=== PATIENT | female | born 1985 | race Caucasian/White ===

== ENCOUNTER 2020-07-14 17:16 | Emergency (ER) | payer OTHER, SELFPAY ==
[2020-07-14] VITALS (8 sets, daily range): BP systolic 103–138; BP diastolic 64–79; PULSE 90–118; RESP 14–25; TEMP 37.2; O2SAT 96–100; BMI 23.0
--- NOTE | 2020-07-14 17:54 | XR_ITS ---
WS: [id number] PORTABLE CHEST HISTORY: dyspnea/cough COMPARISON: None available. Lungs are clear and well expanded. No pleural effusion or pneumothorax. Cardiac size: Normal. Mediastinum/Aorta: Normal mediastinum. No osseous abnormality seen. XR/XR chest 1V portable [id number] IMPRESSION: Unremarkable portable chest.
[2020-07-14 18:17] LABS: Basophils % 0.1 %; Eosinophils % 0.4 %; Hematocrit 41.4 % (37.0-47.0); Hemoglobin 13.8 g/dL (11.5-15.3); Lymphocytes # 1.8 10^3/uL (0.8-4.8); Lymphocytes % 21.4 %; Mean Corpuscular HGB Conc 33.3 g/dL (30.0-36.0); Mean Corpuscular Hemoglobin 30.5 pg (28.0-34.0); Mean Corpuscular Volume 91.4 fL (81-99); Mean Platelet Volume 10.5 fL (7.4-10.4); Monocytes # 0.8 10^3/uL (0.2-0.9); Neutrophils # 5.81 10^3/uL (1.8-7.7); Neutrophils % 68.9 %; Nucleated Red Blood Cells % 0 %; Platelet Count 260 10^3/cmm (130-400); Red Blood Count 4.53 10^6/uL (4.1-5.3); Red Cell Distribution Width 12.6 % (12.1-15.1); White Blood Count 8.4 10^3/uL (4.0-10.0)
[2020-07-14] MEDS: sodium chloride 0.9% 1,000 ML 999 ML IV (18:28)
--- NOTE | 2020-07-14 18:28 | CTR_ITS ---
PROCEDURE INFORMATION: Exam: CT Head Without Contrast Exam date and time: 07/14/2020 6:47 PM Age: 34 years old Clinical indication: Dizziness TECHNIQUE: Imaging protocol: Computed tomography of the head without contrast. Radiation optimization: All CT scans at this facility use at least one of these dose optimization techniques: automated exposure control; mA and/or kV adjustment per patient size (includes targeted exams where dose is matched to clinical indication); or iterative reconstruction. COMPARISON: No relevant prior studies available. RADIATION DOSE METRICS: Total DLP (mGy-cm): 653.83 FINDINGS: Brain: Normal. No hemorrhage. Unremarkable white matter. No mass effect. Cerebral ventricles: No ventriculomegaly. Bones/joints: Unremarkable. No acute fracture. Paranasal sinuses: Visualized sinuses are unremarkable. No fluid levels. Mastoid air cells: Visualized mastoid air cells are well aerated. Soft tissues: Unremarkable. CT/CT head wo con* [id number] IMPRESSION: No acute intracranial abnormality. Radiation Dose CTDIVOL = (mGy): DLP = 653.83 (mGy-cm)
[2020-07-14] MEDS: aspirin 325 mg Tablet PO (18:38)
[2020-07-14 18:47] LABS: Alanine Aminotransferase 24 U/L (0-33); Albumin Level 5.2 g/dL (3.5-5.2); Alkaline Phosphatase 70 IU/L (35-105); Anion Gap 15.2 (5-19); Aspartate Amino Transferase 26 U/L (0-32); Blood Urea Nitrogen 8 mg/dL (6-20); Calcium 10.2 mg/dL (8.5-10.5); Carbon Dioxide 26 mmol/L (22-29); Chloride 100 mmol/L (98-107); Glomerular Filtration Rate 139.6 mL/min (90-130); Glucose 92 mg/dL (65-115); Osmolality Calculated 284 mOsm/kg (285-295); Potassium 3.2 mmol/L (3.5-5.1); Sodium 138 mmol/L (136-145); Total Bilirubin 0.6 mg/dL (0.15-1.2); Total Protein 8.2 g/dL (6.6-8.7)
[2020-07-14 18:50] LABS: Troponin(5th) Baseline 6 ng/L (0-10)
[2020-07-14 18:54] LABS: Add Urine Microscopic? NO
[2020-07-14 19:11] LABS: Bilirubin Urine Neg (Negative); Blood Urine Neg (Negative); Glucose Urine UA Norm (Normal); Ketones Urine 1+ (Negative); Leukocyte Esterase Urine Negative (Negative); Nitrate Urine Negative (Negative); Protein Urine Neg (Negative); Specific Gravity, Urine 1.005 (1.005-1.030); Urine Appearance Clear (CLEAR); Urine Color Yellow (Yellow); Urobilinogen Urine Norm (Negative); pH Urine 6 (5-7)
[2020-07-14 19:12] LABS: D Dimer 0.45 ug/mIFEU (0-0.59)
--- NOTE | 2020-07-14 19:15 | ECG_ITS ---
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
[2020-07-14 19:20] LABS: Amphetamines Screen Urine Negative (Negative); Barbiturates Screen Urine Negative (Negative); Benzodiazepines Screen Urine Positive (Negative); Cocaine Screen Urine Negative (Negative); Opiate Screen Urine Negative (Negative); PCP Screen Urine Negative (Negative); THC Screen Urine Negative (Negative)
[2020-07-14 19:25] LABS: SARS Covid-2 Antigen Negative (Negative)
[2020-07-14 19:36] LABS: Free T4 Free Thyroxine 1.27 ng/dL (0.82-1.77); Magnesium 2.2 mg/dL (1.7-2.3); Thyroid Stimulating Hormone 2.26 uIU/mL (0.27-4.20)
--- NOTE | 2020-07-14 19:54 | ED_ITS ---
HPI - Chest Pain General: Chief Complaint: Chest Pain Stated Complaint: chest pain Time Seen by Provider: 07/14/20 17:54 Source: patient Mode of arrival: ambulatory Limitations: no limitations History of Present Illness: HPI narrative: Madison is a 34-year-old female who comes in complaining of chest pain. She describes the pain as a ache type pain that radiates down her left arm. Occasionally feels dizzy with this but denies any syncope or near syncope type symptoms. She is nauseated but does not vomit. She denies any shortness of breath, diaphoresis, fevers or chills, but she states she does have a runny nose and congestion. She also complains of some mild epigastric pain intermittently but none presently. Patient denies any similar symptoms to this in the past. She is unaware of anything that makes her pain better or worse. She states this pain has been constant for the past 2 days and is wax and wane in intensity but is never gone away completely. Associated symptoms: Reports abdominal pain, dyspnea, nausea and palpitations; Deny diaphoresis, fever(s), syncope or vomiting Review of Systems Const: Denies: fever(s), chills, body aches, fatigue, malaise or diaphoresis Eyes: Denies: change in vision, blurry vision, photophobia, eye discomfort, eye discharge, eye redness or yellow eyes ENMT: Denies: throat pain, odynophagia, hoarseness, swelling of lips/tongue, ear or mastoid pain, ear discharge, change in hearing or nasal discharge Card: Reports: chest pain and palpitations; Denies: irregular heart rhythm, edema, lightheadedness, syncope, pre-syncope, dyspnea on exertion or orthopnea Resp: Reports: dyspnea; Denies: productive cough, non-productive cough, wheezing, hemoptysis or chest congestion GI: Reports: abdominal pain and nausea; Denies: vomiting, hematemesis, coffee ground emesis, heartburn, diarrhea, constipation, GI cramping, hematochezia or melena : Denies: flank pain, dysuria, urinary frequency, urinary urgency or hematuria Musc: Denies: neck pain, back pain, extremity pain, extremity swelling, joint pain, joint swelling, joint redness, joint warmth or joint stiffness Skin/Breast: Denies: rash, pruritus, erythema, skin pain or skin tenderness Neuro: Reports: headache(s) and dizziness; Denies: numbness in extremities, weakness in extremities, sensory changes, lack of coordination, difficulty walking, vertigo, confusion, Slurred speech present or seizure-like activity Axel/Lymph: Denies: easy bruising, easy bleeding, petechiae, purpura or enlarged lymph nodes All/Imm: Denies: urticaria, throat swelling, tongue swelling, facial swelling or acute wheezing PFSH ED PFSH: Medical History (Updated 07/14/20 @ 22:26 by Phyllis Clifford) Tension headache Surgical History (Updated 07/14/20 @ 21:37 by Phyllis Clifford) H/O hernia repair S/P adenoidectomy S/P tonsillectomy Physical Exam Const: COMMON NORMALS: no acute distress, patient oriented x3, no limitations and alert GENERAL APPEARANCE: cooperative HENMT: COMMON NORMALS: normocephalic, atraumatic, external ears normal, EAC's normal and Normal external nose present HEAD & SCALP: normal to inspection, normocephalic and atraumatic FACE & SINUS: normal facial exam and face symmetric NOSE: Normal external nose present and Normal nares present EXTERNAL EAR: Yes external ears normal EXTERNAL AUDITORY CANAL: EAC's normal MOUTH: Normal oral and palatal mucosa present, lip normal and tongue normal Eye: COMMON NORMALS: Equal, round and reactive pupils present and conjunctivae normal GENERAL EYE: appearance normal, both eyes and all related structures ALIGNMENT: Yes alignment normal PERIORBITAL: periorbital findings normal EYELID: eyelids normal CONJUNCTIVA: Yes conjunctivae normal SCLERA: sclerae normal PUPIL: Yes Equal, round and reactive pupils present Neck/C-Spine: COMMON NORMALS: full ROM, no lymphadenopathy, supple, no meningeal signs and no JVD GENERAL: Yes normal visual inspection and Yes trachea midline Chest: COMMONS NORMALS: normal inspection of the chest and normal palpation of entire chest wall Resp: COMMON NORMALS: normal respiratory effort, No retractions, No use of accessory muscles and clear to auscultation bilaterally EFFORT & INSPECTION: Yes able to speak in complete sentences and Yes symmetric chest movement AUSCULTATION: clear to auscultation bilaterally, no crackles, no rales, no rhonchi and no wheezes Cardio: COMMON NORMALS: no JVD, regular rate, regular rhythm, S1 normal heart sound present and S2 normal heart sound present RATE: regular rate RHYTHM: regular rhythm HEART SOUNDS: S1 normal heart sound present, S2 normal heart sound present, no click, no gallops, no murmurs and no rubs GI: COMMON NORMALS: Soft to palpation and No hepatosplenomegaly present PALPATION: Yes Soft to palpation, No Tenderness to palpation present (GI), No Guarding due to palpation present (GI), No Rigid due to palpation, Yes No hepatosplenomegaly present, No Hernia present, No Palpable mass present and No Pulsatile mass present : COMMON NORMALS: Yes no CVA tenderness BLADDER/KIDNEY EXAM: Yes no CVA tenderness EXTERNAL FEMALE EXAM: No Hernia present Back/Pelvis: COMMON NORMALS: no CVA tenderness, thoracic and lumbar spine normal to inspection, no thoracic nor lumbar tenderness and thoraco-lumbar ROM normal Extremity: COMMON NORMALS: normal to inspection, full ROM, capillary refill normal, no joint enlargement, no clubbing, cyanosis or edema and no calf tenderness Neuro: COMMON NORMALS: patient oriented x3, CN's II-XII intact bilaterally, moves all extremities, no focal motor deficits and no sensory deficits noted SENSORIUM/ORIENTATION: Yes alert MENINGEAL SIGNS: Yes no meningeal signs SPEECH: speech normal Psych: COMMON NORMALS: mental status grossly normal, Normal thought process present, cooperative, normal affect, speech normal and activity/motor behavior normal SPEECH: Yes normal speech THOUGHT PROCESS: Normal thought process present Skin: COMMON NORMALS: no rashes or lesions noted, turgor normal, no jaundice, no petechiae and no mottling GENERAL SKIN EXAM: no rashes or lesions noted and turgor normal Course Vital Signs: Vital signs: Vital Signs Temperature 98.9 F 07/14/20 17:27 Pulse Rate 93 07/14/20 22:00 Respiratory Rate 21 H 07/14/20 22:00 Blood Pressure 103/70 07/14/20 22:00 Pulse Oximetry 97 07/14/20 22:00 MDM - Chest Pain MDM Narrative: Medical decision making narrative: Rosamaria is a very nice 34-year-old female who comes in complaining of constant chest pain for the past 2 days. Her symptoms have been constant but does wax and wanes in intensity. She has a heart score of 1, and the EDACs score of 7 which is low risk and has a T-MACS rated is very low. Nonetheless because the patient seems very anxious and concerned about her symptoms I have offered to keep her here for a 6-hour troponin and EKG as well as admitting her to the hospital for observation for stress testing. After asking multiple questions and talking with her she has decided she would rather go home. I think with 2 days of constant pain with no change in her EKGs or bump in her troponin this is unlikely to be acute coronary syndrome. I have utilized the hospital chest pain pathway and she is deemed safe for discharge. Patient is not on control, she has no leg pain or swelling and there is no pleuritic sounding component. The patient is low risk per the Wells criteria for DVT/PE and her D-dimer is negative. Patient understands she can return here if her symptoms change or worsen but at this time she is feeling better and would like to be discharged. I will have case management set her up for an outpatient stress test. Lab Data: Attestation: I reviewed the patient's lab results. Labs: Lab Results 07/14/20 07/14/20 07/14/20 Range/Units 18:08 18:08 18:08 WBC 8.4 (4.0-10.0) 10^3/ uL RBC 4.53 (4.1-5.3) 10^6/u L Hgb 13.8 (11.5-15.3) g/dL Hct 41.4 (37.0-47.0) % MCV 91.4 (81-99) fL MCH 30.5 (28.0-34.0) pg MCHC 33.3 (30.0-36.0) g/dL RDW 12.6 (12.1-15.1) % Plt Count 260 (130-400) 10^3/c mm MPV 10.5 H (7.4-10.4) fL Neut % (Auto) 68.9 % Lymph % (Auto) 21.4 % Swain % (Auto) 9.0 % Eos % (Auto) 0.4 % Baso % (Auto) 0.1 % Neut # (Auto) 5.81 (1.8-7.7) 10^3/u L Lymph # (Auto) 1.8 (0.8-4.8) 10^3/u L Swain # (Auto) 0.8 (0.2-0.9) 10^3/u L Eos # (Auto) 0.0 (0.0-0.8) 10^3/u L Baso # (Auto) 0.0 (0.0-0.1) 10^3/u L Nucleated RBC % (a uto) 0 % Nucleated RBCs # 0.0 /100WBC D-Dimer (0-0.59) ug/mIFE U Sodium 138 (136-145) mmol/L Potassium 3.2 L (3.5-5.1) mmol/L Chloride 100 (98-107) mmol/L Carbon Dioxide 26 (22-29) mmol/L Anion Gap 15.2 (5-19) BUN 8 (6-20) mg/dL Creatinine 0.5 (0.5-0.9) mg/dL GFR Calculation 139.6 H (90-130) mL/min Glucose 92 (65-115) mg/dL Calculated Osmolal ity 284 L (285-295) mOsm/k g Lactic Acid (0.5-2.2) mmol/L Calcium 10.2 (8.5-10.5) mg/dL Magnesium (1.7-2.3) mg/dL Total Bilirubin 0.6 (0.15-1.2) mg/dL AST 26 (0-32) U/L ALT 24 (0-33) U/L Alkaline Phosphata se 70 (35-105) IU/L Troponin T Baselin e 6 (0-10) ng/L Troponin T 120 Min [place] (0-10) ng/L Delta Troponin T (0-10) ABS# Total Protein 8.2 (6.6-8.7) g/dL Albumin 5.2 (3.5-5.2) g/dL Globulin 3.0 (1.3-4.6) g/dL TSH (0.27-4.20) uIU/ mL Free T4 (0.82-1.77) ng/d L Urine Color (Yellow) Urine Appearance (CLEAR) Urine pH (5-7) Ur Specific Gravit y (1.005-1.030) Urine Protein (Negative) Urine Glucose (UA) (Normal) Urine Ketones (Negative) Urine Blood (Negative) Urine Nitrate (Negative) Urine Bilirubin (Negative) Urine Urobilinogen (Negative) mg/dL Ur Leukocyte Nazanin ase (Negative) Urine Opiates Scre en (Negative) ng/mL Ur Barbiturates Sc reen (Negative) ng/mL Ur Phencyclidine S crn (Negative) ng/mL Ur Amphetamines Sc reen (Negative) ng/mL U Benzodiazepines Scrn (Negative) ng/mL Urine Cocaine Scre en (Negative) ng/mL U Marijuana (THC) Screen (Negative) ng/mL SARS-CoV-2 Ag (Rap id) (Negative) 07/14/20 07/14/20 07/14/20 Range/Units 18:08 18:08 18:43 WBC (4.0-10.0) 10^3/ uL RBC (4.1-5.3) 10^6/u L Hgb (11.5-15.3) g/dL Hct (37.0-47.0) % MCV (81-99) fL MCH (28.0-34.0) pg MCHC (30.0-36.0) g/dL RDW (12.1-15.1) % Plt Count (130-400) 10^3/c mm MPV (7.4-10.4) fL Neut % (Auto) % Lymph % (Auto) % Swain % (Auto) % Eos % (Auto) % Baso % (Auto) % Neut # (Auto) (1.8-7.7) 10^3/u L Lymph # (Auto) (0.8-4.8) 10^3/u L Swain # (Auto) (0.2-0.9) 10^3/u L Eos # (Auto) (0.0-0.8) 10^3/u L Baso # (Auto) (0.0-0.1) 10^3/u L Nucleated RBC % (a uto) % Nucleated RBCs # /100WBC D-Dimer 0.45 (0-0.59) ug/mIFE U Sodium (136-145) mmol/L Potassium (3.5-5.1) mmol/L Chloride (98-107) mmol/L Carbon Dioxide (22-29) mmol/L Anion Gap (5-19) BUN (6-20) mg/dL Creatinine (0.5-0.9) mg/dL GFR Calculation (90-130) mL/min Glucose (65-115) mg/dL Calculated Osmolal ity (285-295) mOsm/k g Lactic Acid (0.5-2.2) mmol/L Calcium (8.5-10.5) mg/dL Magnesium 2.2 (1.7-2.3) mg/dL Total Bilirubin (0.15-1.2) mg/dL AST (0-32) U/L ALT (0-33) U/L Alkaline Phosphata se (35-105) IU/L Troponin T Baselin e (0-10) ng/L Troponin T 120 Min [place] (0-10) ng/L Delta Troponin T (0-10) ABS# Total Protein (6.6-8.7) g/dL Albumin (3.5-5.2) g/dL Globulin (1.3-4.6) g/dL TSH 2.26 (0.27-4.20) uIU/ mL Free T4 1.27 (0.82-1.77) ng/d L Urine Color Yellow (Yellow) Urine Appearance Clear (CLEAR) Urine pH 6 (5-7) Ur Specific Gravit y 1.005 (1.005-1.030) Urine Protein Neg (Negative) Urine Glucose (UA) Norm (Normal) Urine Ketones 1+ H (Negative) Urine Blood Neg (Negative) Urine Nitrate Negative (Negative) Urine Bilirubin Neg (Negative) Urine Urobilinogen Norm (Negative) mg/dL Ur Leukocyte Nazanin ase Negative (Negative) Urine Opiates Scre en (Negative) ng/mL Ur Barbiturates Sc reen (Negative) ng/mL Ur Phencyclidine S crn (Negative) ng/mL Ur Amphetamines Sc reen (Negative) ng/mL U Benzodiazepines Scrn (Negative) ng/mL Urine Cocaine Scre en (Negative) ng/mL U Marijuana (THC) Screen (Negative) ng/mL SARS-CoV-2 Ag (Rap id) (Negative) 07/14/20 07/14/20 07/14/20 Range/Units 18:43 18:45 20:53 WBC (4.0-10.0) 10^3/ uL RBC (4.1-5.3) 10^6/u L Hgb (11.5-15.3) g/dL Hct (37.0-47.0) % MCV (81-99) fL MCH (28.0-34.0) pg MCHC (30.0-36.0) g/dL RDW (12.1-15.1) % Plt Count (130-400) 10^3/c mm MPV (7.4-10.4) fL Neut % (Auto) % Lymph % (Auto) % Swain % (Auto) % Eos % (Auto) % Baso % (Auto) % Neut # (Auto) (1.8-7.7) 10^3/u L Lymph # (Auto) (0.8-4.8) 10^3/u L Swain # (Auto) (0.2-0.9) 10^3/u L Eos # (Auto) (0.0-0.8) 10^3/u L Baso # (Auto) (0.0-0.1) 10^3/u L Nucleated RBC % (a uto) % Nucleated RBCs # /100WBC D-Dimer (0-0.59) ug/mIFE U Sodium (136-145) mmol/L Potassium (3.5-5.1) mmol/L Chloride (98-107) mmol/L Carbon Dioxide (22-29) mmol/L Anion Gap (5-19) BUN (6-20) mg/dL Creatinine (0.5-0.9) mg/dL GFR Calculation (90-130) mL/min Glucose (65-115) mg/dL Calculated Osmolal ity (285-295) mOsm/k g Lactic Acid (0.5-2.2) mmol/L Calcium (8.5-10.5) mg/dL Magnesium (1.7-2.3) mg/dL Total Bilirubin (0.15-1.2) mg/dL AST (0-32) U/L ALT (0-33) U/L Alkaline Phosphata se (35-105) IU/L Troponin T Baselin e (0-10) ng/L Troponin T 120 Min [place] 6.00 (0-10) ng/L Delta Troponin T 0 (0-10) ABS# Total Protein (6.6-8.7) g/dL Albumin (3.5-5.2) g/dL Globulin (1.3-4.6) g/dL TSH (0.27-4.20) uIU/ mL Free T4 (0.82-1.77) ng/d L Urine Color (Yellow) Urine Appearance (CLEAR) Urine pH (5-7) Ur Specific Gravit y (1.005-1.030) Urine Protein (Negative) Urine Glucose (UA) (Normal) Urine Ketones (Negative) Urine Blood (Negative) Urine Nitrate (Negative) Urine Bilirubin (Negative) Urine Urobilinogen (Negative) mg/dL Ur Leukocyte Nazanin ase (Negative) Urine Opiates Scre en Negative (Negative) ng/mL Ur Barbiturates Sc reen Negative (Negative) ng/mL Ur Phencyclidine S crn Negative (Negative) ng/mL Ur Amphetamines Sc reen Negative (Negative) ng/mL U Benzodiazepines Scrn Positive H (Negative) ng/mL Urine Cocaine Scre en Negative (Negative) ng/mL U Marijuana (THC) Screen Negative (Negative) ng/mL SARS-CoV-2 Ag (Rap id) Negative (Negative) 07/14/20 Range/Units 20:53 WBC (4.0-10.0) 10^3/ uL RBC (4.1-5.3) 10^6/u L Hgb (11.5-15.3) g/dL Hct (37.0-47.0) % MCV (81-99) fL MCH (28.0-34.0) pg MCHC (30.0-36.0) g/dL RDW (12.1-15.1) % Plt Count (130-400) 10^3/c mm MPV (7.4-10.4) fL Neut % (Auto) % Lymph % (Auto) % Swain % (Auto) % Eos % (Auto) % Baso % (Auto) % Neut # (Auto) (1.8-7.7) 10^3/u L Lymph # (Auto) (0.8-4.8) 10^3/u L Swain # (Auto) (0.2-0.9) 10^3/u L Eos # (Auto) (0.0-0.8) 10^3/u L Baso # (Auto) (0.0-0.1) 10^3/u L Nucleated RBC % (a uto) % Nucleated RBCs # /100WBC D-Dimer (0-0.59) ug/mIFE U Sodium (136-145) mmol/L Potassium (3.5-5.1) mmol/L Chloride (98-107) mmol/L Carbon Dioxide (22-29) mmol/L Anion Gap (5-19) BUN (6-20) mg/dL Creatinine (0.5-0.9) mg/dL GFR Calculation (90-130) mL/min Glucose (65-115) mg/dL Calculated Osmolal ity (285-295) mOsm/k g Lactic Acid 0.8 (0.5-2.2) mmol/L Calcium (8.5-10.5) mg/dL Magnesium (1.7-2.3) mg/dL Total Bilirubin (0.15-1.2) mg/dL AST (0-32) U/L ALT (0-33) U/L Alkaline Phosphata se (35-105) IU/L Troponin T Baselin e (0-10) ng/L Troponin T 120 Min [place] (0-10) ng/L Delta Troponin T (0-10) ABS# Total Protein (6.6-8.7) g/dL Albumin (3.5-5.2) g/dL Globulin (1.3-4.6) g/dL TSH (0.27-4.20) uIU/ mL Free T4 (0.82-1.77) ng/d L Urine Color (Yellow) Urine Appearance (CLEAR) Urine pH (5-7) Ur Specific Gravit y (1.005-1.030) Urine Protein (Negative) Urine Glucose (UA) (Normal) Urine Ketones (Negative) Urine Blood (Negative) Urine Nitrate (Negative) Urine Bilirubin (Negative) Urine Urobilinogen (Negative) mg/dL Ur Leukocyte Nazanin ase (Negative) Urine Opiates Scre en (Negative) ng/mL Ur Barbiturates Sc reen (Negative) ng/mL Ur Phencyclidine S crn (Negative) ng/mL Ur Amphetamines Sc reen (Negative) ng/mL U Benzodiazepines Scrn (Negative) ng/mL Urine Cocaine Scre en (Negative) ng/mL U Marijuana (THC) Screen (Negative) ng/mL SARS-CoV-2 Ag (Rap id) (Negative) Imaging Data^: CXR: Attestation: I personally reviewed and interpreted this imaging study as follows: My impression: No acute cardiopulmonary findings. CT Head: Radiologist's impression: [address] [address] [address] Scan Report Signed Patient: Madison Arreguin Unit #: [id number] : 1985 Age/Sex: 34 / F ADM Date: 07/14/20 Loc: ER Room/Bed: Attending Dr: Ordering Provider/Ordering MD: Phyllis Clifford DO Date of Service: 07/14/20 Procedure(s): CT head wo con* [id number] Accession Number(s): [id number] Report Number: [id number] PROCEDURE INFORMATION: Exam: CT Head Without Contrast Exam date and time: 07/14/2020 6:47 PM Age: 34 years old Clinical indication: Dizziness TECHNIQUE: Imaging protocol: Computed tomography of the head without contrast. Radiation optimization: All CT scans at this facility use at least one of these dose optimization techniques: automated exposure control; mA and/or kV adjustment per patient size (includes targeted exams where dose is matched to clinical indication); or iterative reconstruction. COMPARISON: No relevant prior studies available. RADIATION DOSE METRICS: Total DLP (mGy-cm): 653.83 FINDINGS: Brain: Normal. No hemorrhage. Unremarkable white matter. No mass effect. Cerebral ventricles: No ventriculomegaly. Bones/joints: Unremarkable. No acute fracture. Paranasal sinuses: Visualized sinuses are unremarkable. No fluid levels. Mastoid air cells: Visualized mastoid air cells are well aerated. Soft tissues: Unremarkable. CT/CT head wo con* [id number] IMPRESSION: No acute intracranial abnormality. Radiation Dose CTDIVOL = (mGy): DLP = 653.83 (mGy-cm) Dictated By: Mukesh Benitez Signed By: Mukesh Benitez Signed Date/Time: 07/14/201922 DD/ 21 EKG Data^: EKG 1: Attestation: I personally reviewed and interpreted this EKG as follows: EKG interpretation date: 07/14/20 EKG interpretation time: 17:23 Interpretation: Normal sinus rhythm 104 beats a minute, normal intervals, incomplete right bundle branch block, nonspecific ST and T wave changes. EKG 2: Attestation: I personally reviewed and interpreted this EKG as follows: EKG interpretation date: 07/14/20 EKG interpretation time: 19:19 Interpretation: Normal sinus rhythm at 90 beats a minute, normal axis, normal intervals, incomplete right bundle branch block, no acute ST or T wave changes. Discharge Plan Discharge Patient Disposition: Home Clinical Impression: Chest pain Qualifiers: Chest pain type: unspecified Qualified Code(s): R07.9 - Chest pain, unspecified Condition: Stable Prescriptions: No Action diazepam 2 mg tablet 2 mg PO DAILY RF: 0 vitamin B complex Tablet 1 tab PO DAILY RF: 0 Claritin 10 mg Tablet 10 mg PO DAILY RF: 0 magnesium 200 mg Tablet 200 mg PO DAILY RF: 0 turmeric 1 tab PO DAILY RF: 0 Fish Oil 1 cap PO DAILY RF: 0 Vitamin C 1 tab PO DAILY RF: 0 glucosamine HCl 1 tab PO DAILY RF: 0 Discharge Orders: Discharge Order (Routine); Ordered 07/14/20 Ordered By: Phyllis Clifford Referrals: Chaz Fairchild MD [Primary Care Provider] - Discharge Diet: Low Cholesterol Discharge Activity: Increase activity as tolerated Patient Instructions: Chest Pain (ED) Activity Restrictions/Additional Instructions: Please return to the ER immediately for any of the signs or symptoms listed on your discharge instruction sheets, worsening/changing of your symptoms, you are not getting better as quickly as expected, or for ANY other cause or concerns. I have recommended and offered to perform further testing on your heart to include admission and possibly cardiology consult and stress testing but you have declined. Of course any heart problem can be life-threatening so if your symptoms return, your symptoms change or worsen in any way or you simply change your mind you are more than welcome to return to the ER for further evaluation and care. Our case management department will contact you to set up an outpatient stress test. If you develop any symptoms that are concerning between now and then please return here for recheck. Coding Level of Care Code ED Computer Systems Information Director for [facility] Fwd Exam Comprehensive
[2020-07-14] MEDS: potassium chloride ER 10 mEq Tablet 40 MEQ PO (20:07)
[2020-07-14 21:41] LABS: Lactic Sepsis W/Reflex 0.8 mmol/L (0.5-2.2)
[2020-07-14 21:42] LABS: Troponin 5 2HR Delta 0 ABS# (0-10)
--- NOTE | 2020-07-15 13:01 | DCPLANNER ---
sales activity manager had message to schedule an outpatient stress test for patient. sales activity manager faxed order for outpatient stress test to centralized scheduling. sales activity manager will call for appointment information.
--- NOTE | 2020-07-16 08:01 | DCPLANNER ---
Patient has an out patient stress test scheduled for Friday, July 31, 2020 at 10:00. Centralized scheduling will call patient with appointment information.
--- NOTE | 2020-08-19 13:12 | DCPLANNER ---
Patient had a follow up appointment scheduled for 07.31.20 for a stress test - patient did attend appointment.
== END 2020-07-14 22:48 | disposition home or self-care (01) ==
PROVIDERS: Family Medicine; Emergency Provider Emergency Medicine; PCP Family Medicine
DX: R07.9 Chest pain, unspecified (principal)
CPT/HCPCS: 12345; 36415; 70450; 71045; 80053; 80306; 81003; 83605; 83735; 84439; 84443; 84484; 85025; 85378; 87426; 93005; 96360; 96361; 99284; J7030

== ENCOUNTER 2020-07-31 07:29 | Outpatient (CLI) | payer OTHER, SELFPAY ==
[2020-07-31 07:40] VITALS: BMI 22.1
--- NOTE | 2020-07-31 07:44 | ECG_ITS ---
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 Interpretive Statements NAME OF STUDY: LEXISCAN SESTAMIBI STRESS TEST INDICATION: Chest Pain PROCEDURE: At the baseline, the blood pressure was 109/73 mmHg with a heart rate of 74 bpm. The electrocardiogram showed normal sinus rhythm, normal axis with normal ST and T's. The Lexiscan was infused over a period of 20 seconds. A total of 0.4 milligrams of Lexiscan was infused. The stress phase was continued for a total of 5 minutes. Heart rate at the end of the stress phase was 116 bpm with a blood pressure of 110/69 mmHg. The EKG at the peak infusion revealed sinus tachycardia with nonspecific mild ST depression in inferolateral leads. Sestamibi was injected 20 seconds after the Lexiscan infusion. Blood pressure at the end of the recovery phase was 120/70 mmHg with a heart rate of 107 beats per minute. CONCLUSION: 1. No significant EKG changes with the LexiScan infusion. 2. No LexiScan induced chest pain or cardiac arrhythmia. 3. Normal blood pressure and heart rate response. 4. Sestamibi/sestamibi perfusion scan pending; see separate report. Electronically Signed On 07-31-2020 13:36:59 [employer] by Josefa Daniel M.D. [email or web address]
--- NOTE | 2020-07-31 07:44 | NMCV_ITS ---
NM hannah perf SPECT r/s* [id number] Madison Arreguin Age: 34 Gender: F : 1985 Exam Date: 07/31/2020 08:41 Ordering Phys: Phyllis Clifford DO Technologist: DIANA Perry Exam Location: [facility] Indications: CHEST PAIN STRESS TEST Please see separate stress test report [facility] for full findings IMAGE PROTOCOL Rest/Stress 1 Lexiscan Day Radiopharmaceutical Dose (mCi) Administration Site Administered by Rest: Tc-99m 10.5 IV DIANA Perry Sestamibi Stress:Tc-99m 31.9 IV DIANA Soto Sestamibi Rest: 31-Jul-2020 60 Discovery 630 Stress: 31-Jul-2020 30 Discovery 630 0.4mg Lexiscan. Images obtained in supine and prone position. SPECT RESULTS Technical Quality: Excellent Raw Data Analysis: Normal Image Corrections: No attenuation or motion correction applied Summed Stress Score: 0 Summed Rest Score: 0 Summed Difference Score: 0 PERFUSION FINDINGS SPECT images demonstrate homogeneous tracer distribution throughout the myocardium. FUNCTIONAL RESULTS (calculated via Gated SPECT) Stress Image LV EF (%): 90 Stress EDV (mL):51 TID: 0.92 Stress ESV (mL):5 FUNCTIONAL FINDINGS: The left ventricle is normal in size. Transient Ischemia Dilatation of 0.92. There is normal left ventricular systolic function. The left ventricular ejection fraction is hyperdynamic with a value of 90%. This is overestimated likely due to small left ventricular cavity size. There is hyperdynamic left ventricular wall thickening. IMPRESSIONS 1. Myocardial perfusion imaging is normal. 2. Overall left ventricular systolic function is normal without regional wall motion abnormalities. 3. The left ventricular ejection fraction is hyperdynamic with a value of 90%. 4. Scan indicates low risk for cardiac events. Josefa Daniel MD (Electronically Signed) Final Date: 02 August 2020 20:51 S
[2020-07-31] MEDS: regadenoson 0.4 Mg/5 ml Syringe IVP (09:29)
[2020-07-31 09:39] VITALS: BP 113/76; PULSE 94
== END 2020-07-31 07:30 | disposition home or self-care (01) ==
LOC: CDL 07:34
PROVIDERS: PCP Nurse Practitioner; Visit Provider Emergency Medicine
DX: R07.9 Chest pain, unspecified (principal)
CPT/HCPCS: 78452; 93017; A9500; J2785

== ENCOUNTER 2021-01-08 07:37 | Outpatient (CLI) | payer OTHER, SELFPAY ==
--- NOTE | 2021-01-08 07:43 | MM_ITS ---
WS: [id number] SCREENING DIGITAL MAMMOGRAM WITH CAD HISTORY: SCREENING COMPARISON: None available. Bilateral CC and MLO views submitted. Computer aided detection analyzed. Breast composition: The breasts are extremely dense, which lowers the sensitivity of mammography. Are a of very subtle architectural distortion in the anterior RIGHT breast seen best on the MLO projectio n. No nipple retraction. No calcifications. MM/[place] [id number] IMPRESSION: BI-RADS: 0-Incomplete: Need additional imaging evaluation FOLLOW UP: Need Additional Imaging RIGHT breast: Spot compression views (CC and MLO). True ML. Ultrasound to follo w if abnormality persists.
== END 2021-01-08 07:38 | disposition home or self-care (01) ==
PROVIDERS: PCP Nurse Practitioner; Visit Provider Nurse Practitioner
DX: Z12.31 Encounter for screening mammogram for malignant neoplasm of breast (principal)
CPT/HCPCS: 77067

== ENCOUNTER 2021-01-22 09:04 | Outpatient (CLI) | payer OTHER, SELFPAY ==
--- NOTE | 2021-01-22 09:14 | US_ITS ---
WS: [id number] ADDITIONAL VIEWS RIGHT BREAST RIGHT breast ultrasound, limited HISTORY: ABNORMAL MAMMOGRAM COMPARISON: 01/08/2021 Compression views right CC and MLO projection. True ML also submitted. Asymmetry and slight spiculation posterior to the RIGHT nipple nearly completely resolves. Very dense fibroglandular tissue is present. Ultrasound will be performed to confirm there is no underlying abn ormality. RIGHT breast ultrasound, limited. Ultrasound directed to the anterior breast. There is no suspicious mass identified. No shadowing. No rmal-appearing fibroglandular densities. US/US breast RT limited* [id number] IMPRESSION: BI-RADS: 2-Benign FOLLOW-UP: 1 Year Follow-up
== END 2021-01-22 09:05 | disposition home or self-care (01) ==
LOC: RADSHAW 09:07
PROVIDERS: PCP Nurse Practitioner; Visit Provider Internal Medicine
DX: R92.8 Other abnormal and inconclusive findings on diagnostic imaging of breast (principal)
CPT/HCPCS: 76642; 77065

== ENCOUNTER 2021-03-30 14:32 | Outpatient (CLI) | payer OTHER, SELFPAY ==
--- NOTE | 2021-03-30 14:49 | CT_ITS ---
WS: [id number] CT ABDOMEN WITH CONTRAST HISTORY: SOFT TISSUE MASS UNDER BREAST Contiguous single phase 5 mm axial imaging performed to the abdomen. Oral contrast has been provided. Coronal and sagittal reformats are submitted. All CT scans at [facility] use at least on e of these dose optimization techniques: automated exposure control; mA and/or kV adjustment per meagan ent size (includes targeted exams where dose is matched to clinical indication); or iterative reconst ruction. CONTRAST: Omnipaque 300; 95 mL IV. DLP: 694.37 mGycm COMPARISON: 08/01/2016 Lower thorax: Unremarkable. Liver: Normal. No intrahepatic dilatation. Gallbladder: Normal. Pancreas: Normal. Spleen: Normal. Adrenals: Normal. Right kidney: Normal. Left kidney: Normal. Aorta: Normal. GI tract: Moderate fecal retention throughout the visualized colon. No obstruction. No adenopathy or free fluid. Abdominal wall: No soft tissue mass along the abdominal wall. Marker is placed along the upper LEFT a bdominal wall at the site of pain. There is no underlying abnormality identified. Visualized osseous structures: Unremarkable. CT/CT abdomen w con* [id number] IMPRESSION: 1. No soft tissue abnormality noted within the LEFT upper abdominal wall at th e site of pain. 2. Constipation.
[2021-03-30] MEDS: iohexol 300 mg/mL 100 mL Btl IV (15:12)
== END 2021-03-30 14:33 | disposition home or self-care (01) ==
PROVIDERS: PCP Nurse Practitioner; Visit Provider Family Medicine
DX: R19.02 Left upper quadrant abdominal swelling, mass and lump (principal); K59.00 Constipation, unspecified
CPT/HCPCS: 74160; Q9967

== ENCOUNTER 2021-07-15 14:59 | Outpatient (CLI) | payer OTHER, SELFPAY ==
--- NOTE | 2021-07-15 15:00 | USCV_ITS ---
Madison Arreguin Age: 35 Gender: F : 1985 Exam Date: 07/15/2021 15:21 Ordering Phys: Curtis Edwards M.D ([email or web address]) Technologist: Diana Marroquin [place] [facility] [place]ication: SOB BP: 110 / 70 HR: 84 Rhythm: Sinus Technical Quality: Adequate MEASUREMENTS (Male / Female) Normal Values 2D ECHO LV Diastolic Diameter PLAX 3.9 cm 4.2 - 5.9 / 3.9 - 5.3 cm LV Systolic Diameter PLAX 2.5 cm IVS Diastolic Thickness 0.8 cm 0.6 - 1.0 / 0.6 - 0.9 cm IVS Systolic Thickness 1.2 cm LVPW Diastolic Thickness 1.1 cm 0.6 - 1.0 / 0.6 - 0.9 cm LVPW Systolic Thickness 1.4 cm LVOT Diameter 2.0 cm LV Ejection Fraction 2D Teich 65.3 % LV Ejection Fraction MOD 2C 70.1 % LV Ejection Fraction 2C AL 70.5 % LA Diameter 2.1 cm LA Width 2.8 cm LA Height 2.9 cm RA Width 2.6 cm RA Height 3.4 cm Aorta at Sinotubular Diameter 2.4 cm M-MODE Aortic Annulus Diameter 2.8 cm LA Ao Ratio MM 0.8 MV E Point Septal Separation 0.3 cm DOPPLER AV Peak Velocity 116.0 cm/s LVOT Peak Velocity 85.0 cm/s AV Area Cont Eq vti 2.3 cm squared AV Area Cont Eq pk 2.3 cm squared MV Peak Velocity 101.0 cm/s MV Area PHT 4.4 cm squared Mitral E to A Ratio 1.2 MV E' Velocity 50.5 cm/s Mitral E to MV E' Ratio 5.7 Mitral E to LV E' Lateral Ratio 5.9 Mitral E to LV E' Septal Ratio 5.5 TV Peak E Velocity 69.0 cm/s Right Atrial Pressure 3.0 mmHg PV Peak Velocity 98.0 cm/s RV Acceleration Time 0.1 s RV Ejection Time 0.3 s RV AcT/ET 0.4 FINDINGS Left Ventricle Normal left ventricular size. LV systolic function is normal with EF of 55-60%. No regional wall motion abnormalities. Normal diastolic filling pattern. Right Ventricle The right ventricle is normal in size and function. Right Atrium The right atrium is normal in size. Left Atrium The left atrium is normal in size. Mitral Valve Structurally normal mitral valve without significant stenosis or prolapse. There is trace mitral regurgitation. Aortic Valve Structurally normal aortic valve without significant sclerosis or stenosis. There is no aortic regurgitation. Tricuspid Valve Structurally normal tricuspid valve without significant stenosis or regurgitation. Insufficient TR jet to calculate RVSP Pulmonic Valve Structurally normal pulmonic valve without significant stenosis. There is no pulmonic regurgitation. Pericardium Normal pericardium without effusion. Aorta Normal ascending aorta dimension. CONCLUSIONS LV systolic function is normal with EF of 55-60% Diastolic function is normal Trace mitral regurgitation No comparison studies are available Curtis Edwards MD (Electronically Signed) Final Date: 21 July 2021 15:10 S
== END 2021-07-15 15:00 | disposition home or self-care (01) ==
LOC: RAD 15:03
PROVIDERS: PCP Family Medicine; Visit Provider Internal Medicine
DX: R06.02 Shortness of breath (principal); I34.0 Nonrheumatic mitral (valve) insufficiency
CPT/HCPCS: 93306

== ENCOUNTER → 2023-03-01 12:05 | Outpatient (BNVA) | payer BC, SELFPAY | PROVIDERS: PCP Nurse Practitioner; Visit Provider Internal Medicine | DX: M25.50 Pain in unspecified joint (principal); M25.60 Stiffness of unspecified joint, not elsewhere classified; M79.89 Other specified soft tissue disorders; M45.0 Ankylosing spondylitis of multiple sites in spine; L40.9 Psoriasis, unspecified; M47.892 Other spondylosis, cervical region | CPT/HCPCS: 36415; 72040; 72202; 73120; 80053; 81003; 82306; 82550; 82607; 83516; 83735; 84100; 84439; 84443; 84550; 85025; 85651; 86140; 86160; 86162; 86200; 86235; 86255; 86376; 86431; 86704; 86803; 86812; 87340 ==

== ENCOUNTER → 2023-03-28 11:55 | Outpatient (BNVA) | payer BC, SELFPAY | PROVIDERS: PCP Nurse Practitioner; Visit Provider Internal Medicine | DX: M25.50 Pain in unspecified joint (principal); M79.89 Other specified soft tissue disorders; M22.2X9 Patellofemoral disorders, unspecified knee; M54.2 Cervicalgia | CPT/HCPCS: 36415; 82306; 82784; 83516; 83520; 84100; 84182; 86235; 86618; 86666; 86757 ==

== ENCOUNTER → 2023-08-17 14:50 | Outpatient (BNVA) | payer BC, SELFPAY | PROVIDERS: PCP Nurse Practitioner; Visit Provider Internal Medicine | DX: M79.89 Other specified soft tissue disorders (principal); M19.90 Unspecified osteoarthritis, unspecified site; M54.2 Cervicalgia; R79.89 Other specified abnormal findings of blood chemistry; K59.00 Constipation, unspecified | CPT/HCPCS: 36415; 80053; 81291; 82607; 83516; 84207; 84425; 85025; 85651; 86003; 86008; 86140 ==

== ENCOUNTER 2024-08-07 09:24 | Outpatient (CLI) | payer BC, SELFPAY ==
--- NOTE | 2024-08-07 09:20 | MM_ITS ---
WS: [id number] BILATERAL SCREENING DIGITAL TOMOSYNTHESIS MAMMOGRAM WITH CAD HISTORY: SCREENING COMPARISON: 01/22/2021, 01/08/2021, breast ultrasound 01/22/2021 Bilateral CC and MLO views with tomosynthesis and synthetic mammography submitted. Computer aided det ection analyzed. Breast composition: The breasts are extremely dense, which lowers the sensitivity of mammography. No suspicious masses, microcalcifications or architectural distortion. Marked scattered fiber densities and asymmetries are very similar to the prior study. MM/MM scr BI tomosynthesis [id number] IMPRESSION: BI-RADS: 2 - Benign FOLLOW UP: 1 Year Follow-up
== END 2024-08-07 09:25 | disposition home or self-care (01) ==
PROVIDERS: PCP Nurse Practitioner; Visit Provider Nurse Practitioner
DX: Z12.31 Encounter for screening mammogram for malignant neoplasm of breast (principal); R92.333 Mammographic heterogeneous density, bilateral breasts; N64.89 Other specified disorders of breast
CPT/HCPCS: 77063; 77067

== ENCOUNTER 2025-06-17 08:04 | Outpatient (CLI) | payer BC, SELFPAY ==
--- NOTE | 2025-06-17 08:20 | XRR_ITS ---
PROCEDURE INFORMATION: Exam: XR Chest Exam date and time: 06/17/2025 8:36 AM Age: 39 years old Clinical indication: Angina pectoris; Chest pains in upper mid chest x 1 week; Additional info: Other general symptoms and signs TECHNIQUE: Imaging protocol: Radiologic exam of the chest. Views: 2 views. COMPARISON: CR XR ribs LT mn 3V w CXR1V [id number] 01/21/2021 10:17 AM FINDINGS: Lungs: No consolidation or acute appearing pulmonary opacity. Pleural spaces: No pneumothorax. No significant pleural effusion. Heart/Mediastinum: Cardiac silhouette is within normal limits in size. Bones/joints: No acute osseous abnormality. XR/XR chest 2V* [id number] IMPRESSION: No acute radiographic cardiopulmonary abnormality.
[2025-06-17 09:18] LABS: Hematocrit 36.9 % (36-47); Hemoglobin 12.20 g/dL (11.27-16.99); Mean Corpuscular HGB Conc 33.1 g/dL (30-55); Mean Corpuscular Hemoglobin 29.7 pg (27-33); Mean Corpuscular Volume 89.8 fl (85-98); Nucleated Red Blood Cells % 0 %; Platelet Count 326 10^3/cmm (157-399); Red Blood Count 4.11 10^6/uL (3.85-5.65); White Blood Count 6.96 10^3/uL (3.29-11.43)
[2025-06-17 09:43] LABS: Alanine Aminotransferase 25 U/L (0-33); Albumin Level 4.1 g/dL (3.5-5.2); Alkaline Phosphatase 72 U/L (35-105); Anion Gap 13.9 (5-19); Aspartate Amino Transferase 24 U/L (0-32); Blood Urea Nitrogen 10 mg/dL (6-20); Calcium 9.2 mg/dL (8.5-10.5); Carbon Dioxide 30 mmol/L (22-29); Chloride 100 mmol/L (98-107); Globulin 3.1 g/dL (1.3-4.6); Glucose 92 mg/dL (65-115); Osmolality Calculated 291 mOsm/kg (285-295); Sodium 141 mmol/L (136-145); Total Protein 7.2 g/dL (6.6-8.7)
[2025-06-17 10:20] LABS: Potassium 2.9 mmol/L (3.5-5.1)
[2025-06-17 11:40] LABS: Coronavirus 229E,HKU1,NL63,OC4 Not Detected (NOT DETECT); Parainfluenza Virus Type 1 Not Detected (NOT DETECT); Parainfluenza Virus Type 2 Not Detected (NOT DETECT); Parainfluenza Virus Type 3 Not Detected (NOT DETECT); Parainfluenza Virus Type 4 Not Detected (NOT DETECT)
[2025-06-17 11:52] LABS: SARS-COV-2 Detected (NOT DETECT)
[2025-06-17 12:51] LABS: Results from Genmark
== END 2025-06-17 08:05 | disposition home or self-care (01) ==
PROVIDERS: PCP Nurse Practitioner; Visit Provider Nurse Practitioner
DX: R68.89 Other general symptoms and signs (principal)
CPT/HCPCS: 36415; 71046; 80053; 85025; 87631; 87635

== ENCOUNTER 2025-06-25 13:32 | Emergency (ER) | payer BC, SELFPAY ==
[2025-06-25 13:32] VITALS: BP 105/72; PULSE 95; RESP 16; TEMP 36.8; O2SAT 98; BMI 27.2
--- NOTE | 2025-06-25 13:32 | ECG_ITS ---
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1985 Requested By: Nerissa Gooden Order Number: [id number] Sebastien MD: TAMARA JENKINS Measurements Intervals [place] Rate: 89 P: 65 DC: 161 QRS: 21 QRSD: 93 T: 46 QT: 356 QTc: 435 Interpretive Statements SINUS RHYTHM POSSIBLE LEFT ATRIAL ENLARGEMENT [-0.1mV P-WAVE IN V1/V2] LOW QRS VOLTAGE IN PRECORDIAL LEADS [QRS DEFLECTION < 1.0 mV IN CHEST LEADS] POSSIBLE RIGHT VENTRICULAR CONDUCTION DELAY [RSR (QR) IN V1/V2] NONSPECIFIC T-WAVE ABNORMALITY Compared to ECG 07/14/2020 19:19:02 Low QRS voltage now present T-wave abnormality now present Incomplete right bundle-branch block no longer present Electronically Signed On 06-26-2025 16:49:51 CDT by TAMARA JENKINS [email or web address] [id number]
--- NOTE | 2025-06-25 13:32 | XR_ITS ---
WS: [id number] Portable AP upright chest,. 06/25/2025 Clinical Data: cp Comparison: Two-view chest, 06/17/2025 Findings: No nodules, masses or effusions are seen. The heart is normal. The pulmonary vascularity is not increased. No pneumonia or pneumothorax is seen. Monitor leads are on the chest wall. XR/XR chest 1V portable [id number] Impression: Negative chest.
--- NOTE | 2025-06-25 13:50 | ED_ITS ---
HPI - Chest Pain 2 General: Chief Complaint: Chest Pain Stated Complaint: SOB CP Time Seen by Provider: 06/25/25 13:44 History of Present Illness: 39-year-old female who presents emergenc y room with shortness of breath and chest tightness. This been going on since she was diagnosed with COVID. This about 10 days ago. She said she had seen her primary and her potassium was low and she was told to go to the ER last week. She now has a headache. She is slightly tachycardic. Says it hurts to speak. Sometimes when she talks on the phone a long time at work she will have sharp chest pains in her chest. No lower extremity edema Related Data Home Medications ?Medication ?Instructions ?Recorded ?Confirmed amitriptyline 10 mg tablet 10 mg PO DAILY 03/28/2305/12 fluoxetine 20 mg capsule 20 mg PO DAILY 03/28/2305/12 acetaminophen 500 mg tablet 500 mg PO QID PRN Fever Or Pain 06/25/25 06/25/25 (Tylenol Extra Strength) ascorbic acid (vitamin C) 1,000 mg 1,000 mg PO DAILY 1 06/25/25 tablet (Vitamin C) lysine 500 mg tablet (L-Lysine) 500 mg PO DAILY 06/25/25 potassium chloride 8 mEq 8 meq PO DAILY 06/25/2505/12 capsule,extended release vitamin B complex 1 tab PO DAILY 06/25/2505/12 Previous Rx's ?Medication ?Instructions ?Recorded cholecalciferol (vitamin D3) 1,250 50,000 unit PO .Qwe ekly #14 caps 08/17/23 mcg (50,000 unit) capsule meloxicam 15 mg tablet 15 mg PO DAILY PRN Joint darian n #30 08/17/23 tabs albuterol sulfate 90 mcg/actuation 2 inh inhalation Q4 H PRN shortness 06/25/25 aerosol inhaler of breath or wheezing #6.7 g sobia dexamethasone 6 mg tablet 6 mg PO DAILY 5 days #5 tabs 06/25/25 diclofenac sodium 50 mg 50 mg PO BID PRN pain #14 ta bs 06/25/25 tablet,delayed release Allergies Allergy/AdvReac Type Severity Reaction Status Date / Time metronidazole Allergy ADR-Faintin Verified 06/25/25 13:43 g Penicillins Allergy ALGY-Rash Verified 08/17/23 13:46 Review of Systems 2 Narrative: Constitutional symptoms: Negative except as documented in HPI. Skin symptoms: Negative except as documented in HPI. Eye symptoms: Negative except as documented in HPI. ENMT symptoms: Negative except as documented in HPI. Respiratory symptoms: Negative except as documented in HPI. Cardiovascular symptoms: Negative except as documented in HPI. Gastrointestinal symptoms: Negative except as documented in HPI. Genitourinary symptoms: Negative except as documented in HPI. Musculoskeletal symptoms: Negative except as documented in HPI. Neurologic symptoms: Negative except as documented in HPI. Psychiatric symptoms: Negative except as documented in HPI. Endocrine symptoms: Negative except as documented in HPI. PFSH ED 2 PFSH: Medical History (Updated 06/25/25 @ 16:33 by Salima Jones MD) Hand swelling Arthralgia Tension headache Surgical History S/P adenoidectomy S/P tonsillectomy H/O hernia repair Social History Alcohol intake: never Substance/Drug Use: never Physical Exam 2 Narrative: EXAM NARRATIVE: General: Alert, no acute distress. Skin: Warm, dry. Head: Normocephalic, atraumatic. Neck: Supple, trachea midline. Eye: Extraocular movements are intact. Ears, nose, mouth and throat: mucosa moist. Cardiovascular: Regular, Normal peripheral perfusion. Respiratory: Lungs are clear to auscultation, respirations are non-labored, breath sounds are equal, Symmetrical chest wall expansion. Gastrointestinal: Soft, Nontender, Non distended Musculoskeletal: Normal ROM, no deformity. Neurological: Alert and oriented, No focal neurological deficit observed. Psychiatric: Cooperative, appropriate mood & affect. Course 2 Vital Signs: Vital signs: Vital Signs Temperature 98.2 F 06/25/25 13:32 Pulse Rate 130 H 06/25/25 14:48 Respiratory Rate 24 H 06/25/25 14:46 Blood Pressure 105/72 06/25/25 13:32 Pulse Oximetry 99 06/25/25 14:46 Oxygen Delivery Me thod Room Air 06/25/25 14:46 MDM - Chest Pain Medical Decision Making Differential diagnosis for patient with chest pain includes but is not limited to and based on the above HPI, review of systems and physical exam: Pneumonia. unstable angina. angina. Acute coronary syndrome / VT. Pulmonary embolism. Costochondritis / musculoskeletal. Pleurisy. Pericarditis. Esophageal spasm. Pancreatis. Cholecystitis. Orders placed to evaluate differential diagnosis based on the above differential, HPI and physical exam EKG: Time 1336. Rate 89. Normal sinus rhythm, No ST-T changes, no ectopy, normal [place] & QRS intervals, This was reviewed and interpreted by myself the ER physician at 1340 Repeat EKG: Time 1511. Rate 105. Normal sinus rhythm, No ST-T changes, no ectopy, normal [place] & QRS intervals, This was reviewed and interpreted by myself the ER physician at 1515. Heart rate has increased some. This happened after albuterol. Chest x-ray: No acute process. No infiltrate. No pneumothorax. This was reviewed and interpreted by myself the emergency room physician. I also reviewed the radiology report. CTA chest with PE protocol: I ordered this because patient had been tachycardic and she is having prolonged COVID symptoms. COVID has traditionally been associated with pulmonary embolism. This shows no PE but she does have ground glass opacities which are consistent with COVID pneumonitis. This was reviewed and interpreted by myself the emergency room physician. I also reviewed the radiology report. Lab Review: Laboratory results were reviewed and interpreted by myself the emergency room physician. No leukocytosis. No anemia. No renal failure. Troponin negative. I reviewed the patient's medical record. Reexamination: Patient remained stable. No increased work of breathing. No altered mental status. No focal motor deficits. Assessment and plan: COVID pneumonitis ? IV Decadron and breathing treatment in the emergency room - Discharged home - Discussed plan with patient. Answered any questions. - Evaluation and treatment of this problem were appropriate in the emergency setting. Lab Data 06/25/25 13:50 06/25/25 13:50 Radiology Impressions Chest X-Ray 06/25/25 13:32 Impression: Negative chest. Chest CTA 06/25/25 14:53 IMPRESSION: 1. No evidence for pulmonary embolism. 2. Patchy ground-glass opacity posteriorly in the lungs which is nonspecific but could reflect pulmonary edema or an inflammatory/infectious process. Laboratory Results WBC 7.95 10^3/uL (3.29-11.43) 06/25/25 13:50 RBC 4.29 10^6/uL (3.85-5.65) 06/25/25 13:50 Hgb 12.60 g/dL (11.27-16.99) 06/25/25 13:50 Hct 38.3 % (36-47) 06/25/25 13:50 MCV 89.3 fl (85-98) 06/25/25 13:50 MCH 29.4 pg (27-33) 06/25/25 13:50 MCHC 32.9 g/dL (30-55) 06/25/25 13:50 RDW 14.0 % (12.1-15.1) 06/25/25 13:50 Plt Count 409 10^3/cmm (157-399) H 06/25/25 13:50 MPV 9.4 fL (7.4-10.4) 06/25/25 13:50 Neut % (Auto) 74.2 % 06/25/25 13:50 Lymph % (Auto) 16.4 % 06/25/25 13:50 [place] % (Auto) 8.2 % 06/25/25 13:50 Eos % (Auto) 0.8 % 06/25/25 13:50 Baso % (Auto) 0.1 % 06/25/25 13:50 Neut # (Auto) 5.91 10^3/uL (1.8-7.7) 06/25/25 13:50 Lymph # (Auto) 1.3 10^3/uL (0.8-4.8) 06/25/25 13:50 [place] # (Auto) 0.7 10^3/uL (0.2-0.9) 06/25/25 13:50 Eos # (Auto) 0.1 10^3/uL (0.0-0.8) 06/25/25 13:50 Baso # (Auto) 0.0 10^3/uL (0.0-0.1) 06/25/25 13:50 Nucleated RBC % (auto) 0 % 06/25/25 13:50 Nucleated RBCs # 0.0 /100WBC 06/25/25 13:50 Sodium 139 mmol/L (136-145) 06/25/25 13:50 Potassium 4.4 mmol/L (3.5-5.1) 06/25/25 13:50 Chloride 101 mmol/L (98-107) 06/25/25 13:50 Carbon Dioxide 26 mmol/L (22-29) 06/25/25 13:50 Anion Gap 16.4 (5-19) 06/25/25 13:50 BUN 10 mg/dL (6-20) 06/25/25 13:50 Creatinine 0.5 mg/dL (0.5-0.9) 06/25/25 13:50 GFR Calculation 136.0 mL/min (90-130) H 06/25/25 13:50 Glucose 92 mg/dL (65-115) 06/25/25 13:50 Calculated Osmolality 287 mOsm/kg (285-295) 06/25/25 13:50 Calcium 9.6 mg/dL (8.5-10.5) 06/25/25 13:50 Total Bilirubin 0.4 mg/dL (0.15-1.2) 06/25/25 13:50 AST 22 U/L (0-32) 06/25/25 13:50 ALT 18 U/L (0-33) 06/25/25 13:50 Alkaline Phosphatase 91 U/L (35-105) 06/25/25 13:50 Troponin T Baseline < 6 ng/L (0-10) 06/25/25 13:50 NT-Pro-B Natriuret Pep 74 pg/mL (0-125) 06/25/25 13:50 Total Protein 7.6 g/dL (6.6-8.7) 06/25/25 13:50 Albumin 4.7 g/dL (3.5-5.2) 06/25/25 13:50 Globulin 2.9 g/dL (1.3-4.6) 06/25/25 13:50 Lipase 41 U/L (13-60) 06/25/25 13:50 All radiology interpretation(s) finalized by discharge Clincial Decision Support The following clinical decision support tools were used to aid in care of the patient HEART Score -> History: Slightly Suspicous, EKG: Normal, Age: Less than 45 yrs, Risk Factors: No Risk Factors Known, Troponin: Baseline Trop <16 ng/L. Resulting HEART Score: 0. Discharge Plan Discharge Patient Disposition: Home Clinical Impression: Non-cardiac chest pain, COVID-19, Viral pneumonitis Condition: Stable Prescriptions: New dexamethasone 6 mg tablet 6 mg PO DAILY 5 Days Qty: 5 0RF diclofenac sodium 50 mg tablet,delayed release (DR/EC) 50 mg PO BID PRN (Reason: pain) Qty: 14 0RF albuterol sulfate 90 mcg/actuation HFA aerosol inhaler 2 inh inhalation Q4H PRN (Reason: shortness of breath or wheezing) Qty: 6.7 0RF Rx Instructions: Please provide patient with a spacer No Action amitriptyline 10 mg tablet 10 mg PO DAILY fluoxetine 20 mg capsule 20 mg PO DAILY cholecalciferol (vitamin D3) 1,250 mcg (50,000 unit) capsule 50,000 unit PO .Qweekly Qty: 14 0RF meloxicam 15 mg tablet 15 mg PO DAILY PRN (Reason: Joint pain) Qty: 30 1RF ascorbic acid (vitamin C) [Vitamin C] 1,000 mg Tablet 1,000 mg PO DAILY potassium chloride 8 mEq Capsule, Extended Release 8 meq PO DAILY acetaminophen [Tylenol Extra Strength] 500 mg Tablet 500 mg PO QID PRN (Reason: Fever Or Pain) vitamin B complex Tablet 1 tab PO DAILY lysine [L-Lysine] 500 mg Tablet 500 mg PO DAILY Discharge Orders: Discharge ED (Routine); Ordered 06/25/25 Ordered By: Salima Jones Referrals: Yumiko Ryan FNP [Primary Care Provider, Family Practice] Patient Instructions: Opioid Safety, Pain Management, Patient Portal & Cathie Instructions Activity Restrictions/Additional Instructions: Thank you for choosing [facility] for your healthcare needs today. You have been screened and evaluated and felt safe for discharge. Health conditions do change or evolve sometimes and as such it is important that you follow up with your Primary Doctor to be re checked, 3-5 days is a general good time frame for follow up. You are always welcome to return to the ED for re assessment if your symptoms are worsening or you have new concerns Print Language: Japanese Coding Level of Care Code ED [employer] General Supervisor for Chg Fwd Heart Score HEART Score Components History: Slightly Suspicous EKG: Normal Age: Less than 45 yrs Risk Factors: No Risk Factors Known Troponin: Baseline Trop <16 ng/L HEART Score RESULT HEART Score: 0
[2025-06-25 13:58] LABS: Hematocrit 38.3 % (36-47); Hemoglobin 12.60 g/dL (11.27-16.99); Mean Corpuscular HGB Conc 32.9 g/dL (30-55); Mean Corpuscular Hemoglobin 29.4 pg (27-33); Mean Corpuscular Volume 89.3 fl (85-98); Nucleated Red Blood Cells % 0 %; Platelet Count 409 10^3/cmm (157-399); Red Blood Count 4.29 10^6/uL (3.85-5.65); White Blood Count 7.95 10^3/uL (3.29-11.43)
[2025-06-25] MEDS: methylPREDNISolone sod succ 125 mg/2 mL INJ IVP (14:03)
[2025-06-25 14:17] LABS: Troponin(5th) Baseline < 6 ng/L (0-10)
[2025-06-25 14:44] LABS: Alanine Aminotransferase 18 U/L (0-33); Albumin Level 4.7 g/dL (3.5-5.2); Alkaline Phosphatase 91 U/L (35-105); Anion Gap 16.4 (5-19); Aspartate Amino Transferase 22 U/L (0-32); Blood Urea Nitrogen 10 mg/dL (6-20); Calcium 9.6 mg/dL (8.5-10.5); Carbon Dioxide 26 mmol/L (22-29); Chloride 101 mmol/L (98-107); Creatinine Clr Calc Pharmacy 133.4572; Globulin 2.9 g/dL (1.3-4.6); Glucose 92 mg/dL (65-115); Lipase 41 U/L (13-60); NT Pro B Type Natriuretic Pept 74 pg/mL (0-125); Osmolality Calculated 287 mOsm/kg (285-295); Potassium 4.4 mmol/L (3.5-5.1); Sodium 139 mmol/L (136-145); Total Protein 7.6 g/dL (6.6-8.7)
[2025-06-25 14:46] VITALS: PULSE 110; RESP 24; O2SAT 99
[2025-06-25 14:48] VITALS: PULSE 130
--- NOTE | 2025-06-25 14:53 | CTR_ITS ---
PROCEDURE INFORMATION: Exam: CTA Chest With Contrast Exam date and time: 06/25/2025 3:27 PM Age: 39 years old Clinical indication: Shortness of breath and other: Tachycardia; PT test positive for covid 06/17. PT C/O cp and SOB for the last week but the last couple of days it has increased. ; Additional info: Tachycardia, shortness of breath TECHNIQUE: Imaging protocol: Computed tomographic angiography of the chest with contrast. Exam focused on the arteries. 3D rendering (Not supervised by radiologist): MIP and/or 3D reconstructed images were created by the technologist. Radiation optimization: All CT scans at this facility use at least one of these dose optimization techniques: automated exposure control; mA and/or kV adjustment per patient size (includes targeted exams where dose is matched to clinical indication); or iterative reconstruction. Contrast material: [id number]; Contrast volume: 100 ml; Contrast route: INTRAVENOUS (IV); COMPARISON: CR XR chest 1V portable [id number] 06/25/2025 1:48 PM RADIATION DOSE METRICS: Total DLP (mGy-cm): 282.13 FINDINGS: Pulmonary arteries: Normal. No pulmonary emboli. Aorta: Unremarkable. No aortic aneurysm. No aortic dissection. Lungs: 3 mm calcified granuloma posteriorly in the right lower lobe. Mild degree of patchy ground-glass density posteriorly in the lower lobes and right upper lobe. Interspersed areas of air trapping are noted. No consolidation. Pleural spaces: Unremarkable. No pneumothorax. No pleural effusion. Heart: Unremarkable. No cardiomegaly. No pericardial effusion. Lymph nodes: Unremarkable. No enlarged lymph nodes. Bones/joints: Unremarkable. No acute fracture. Soft tissues: Unremarkable. CT/CT angio chest PE protcl [id number] IMPRESSION: 1. No evidence for pulmonary embolism. 2. Patchy ground-glass opacity posteriorly in the lungs which is nonspecific but could reflect pulmonary edema or an inflammatory/infectious process.
[2025-06-25] MEDS: iohexol 350 mg/mL 500 mL Btl (per mL) IV (15:31)
--- NOTE | 2025-06-25 15:32 | ECG_ITS ---
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1985 Requested By: Nerissa Gooden Order Number: [id number] Sebastien MD: TAMARA JENKINS Measurements Intervals [place] Rate: 105 P: 50 DE: 156 QRS: 21 QRSD: 95 T: 35 QT: 271 QTc: 359 Interpretive Statements SINUS TACHYCARDIA POSSIBLE LEFT ATRIAL ENLARGEMENT [-0.1mV P-WAVE IN V1/V2] POSSIBLE RIGHT VENTRICULAR CONDUCTION DELAY [RSR (QR) IN V1/V2] NONSPECIFIC T-WAVE ABNORMALITY ABNORMAL RHYTHM ECG Compared to ECG 06/25/2025 13:36:52 Sinus rhythm no longer present T-wave abnormality still present Electronically Signed On 06-26-2025 16:58:39 CDT by TAMARA JENKINS [id number]
[2025-06-25 16:40] LABS: Troponin 5 2HR < 6.0 ng/L (0-10); Troponin 5 2HR Delta 0 ABS# (0-10)
[2025-06-25 16:47] VITALS: PULSE 115; O2SAT 99
== END 2025-06-25 16:49 | disposition home or self-care (01) ==
PROVIDERS: Emergency Medicine; Emergency Provider Emergency Medicine; PCP Nurse Practitioner
DX: R07.89 Other chest pain (principal); U07.1 COVID-19; J98.4 Other disorders of lung
CPT/HCPCS: 36415; 71045; 71275; 80053; 83690; 83880; 84484; 85025; 93005; 94640; 96374; 99285; J2919; J9999

== ENCOUNTER 2025-09-02 12:41 | Outpatient (CLI) | payer BC, SELFPAY ==
--- NOTE | 2025-09-02 12:40 | MM_ITS ---
WS: [id number] BILATERAL 3D TOMOSYNTHESIS DIGITAL SCREENING MAMMOGRAPHY WITH CAD CLINICAL INFORMATION: SCREENING HISTORY: Screening mammogram. No current complaints. COMPARISON: 2023 TECHNIQUE: Bilateral CC and MLO views. FINDINGS: The breasts are composed of heterogeneous fibroglandular density tissue, which can limit the detection of small underlying mass lesions. No suspicious mass, asymmetry, calcifications, or architectural distortion. No evidence of malignancy. MM/MM scr tomosynthesis [id number] IMPRESSION: DENSITY: The breasts are heterogeneously dense, which may obscure small masses. BI-RADS: 2 - Benign FOLLOW UP: 1 Year Follow-up Recommend return to annual screening mammography.
== END 2025-09-02 12:42 | disposition home or self-care (01) ==
LOC: MOBLMAM 12:43
PROVIDERS: PCP Nurse Practitioner; Visit Provider Nurse Practitioner
DX: Z12.31 Encounter for screening mammogram for malignant neoplasm of breast (principal); R92.333 Mammographic heterogeneous density, bilateral breasts; R92.323 Mammographic fibroglandular density, bilateral breasts
CPT/HCPCS: 77063; 77067